=== PATIENT | female | born 1960 | race Caucasian/White ===

== ENCOUNTER 2024-06-24 18:19 | Emergency (ER) | payer MEDICARE ==
[2024-06-24 18:53] LABS: HEMATOCRIT 40.2 % (34.2-48.2); HEMOGLOBIN 13.7 g/dL (11.4-15.5); MEAN CORPUSCULAR HEMOGLOBIN 31.4 pg (23.9-33.9); MEAN CORPUSCULAR VOLUME 92.4 fL (76.7-100.5); MEAN PLATELET VOLUME 7.9 fL (7.1-12.4); PLATELET COUNT,PLT 298 x10(3)uL (151-488); RED BLOOD CELL COUNT 4.35 x10(6)uL (3.60-5.20); WHITE BLOOD CELL COUNT,WBC 9.4 x10-3/uL (3.0-10.3)
[2024-06-24 18:58] LABS: BLOOD UREA NITROGEN,BUN 17 mg/dL (7-18); BUN/CREATININE RATIO 18.9 (9-20); CARBON DIOXIDE,CO2 26 mmol/L (21-32); CHLORIDE,CL 99 mmol/L (100-110); CREATININE 0.9 mg/dL (0.55-1.02); ESTIMATED GFR 72 mL/min (>60); GLUCOSE RANDOM 115 mg/dL (80-116); POTASSIUM,K 4.5 mmol/L (3.5-5.3); SODIUM,NA 132 mmol/L (135-145)
[2024-06-24 19:09] LABS: A/G RATIO 0.9; ALANINE AMINOTRANSFERASE,ALT 19 U/L (12-36); ALBUMIN 3.5 g/dL (3.2-4.6); ALKALINE PHOSPHATASE 85 IU/L (56-112); ASPARTATE AMNIOTRANSFERASE,AST 22 IU/L (5-25); BILIRUBIN TOTAL 0.4 mg/dL (0.1-1.3); PROTEIN TOTAL,TP 7.5 g/dL (6.0-8.0)
[2024-06-24] MEDS: Iopamidol 755 Mg/ML 100 ML Bottle IV SCH (19:31)
[2024-06-24 19:38] LABS: SEG NEUTROPHILS PERCENT MAN 79 % (46-82)
[2024-06-24 19:39] LABS: BAND PERCENT MAN 6 % (0-6); EOSINOPHILS PERCENT MAN 1 % (0-5); LYMPHOCYTES PERCENT MAN 9 % (13-37); MONOCYTES PERCENT MAN 5 % (4-12)
[2024-06-24 19:46] LABS: TROPONIN I 7.5 pg/mL (4.0-60.3)
[2024-06-24 19:50] LABS: C-REACTIVE PROTEIN 2.55 mg/dL (<0.50)
[2024-06-24 20:16] LABS: BILIRUBIN,URINE NEGATIVE (NEGATIVE); GLUCOSE,URINE NORMAL (NORMAL); KETONES,URINE NEGATIVE (NEGATIVE); LEUKOCYTE ESTERASE,URINE NEGATIVE (NEGATIVE); NITRITE,URINE POSITIVE (NEGATIVE); OCCULT BLOOD,URINE NEGATIVE (NEGATIVE); PROTEIN,URINE NEGATIVE (NEGATIVE); UROBILINOGEN,URINE NORMAL (NEGATIVE)
[2024-06-24] MEDS: Sodium Chloride 0.9% 1,000 ML IV ONE (20:17)
[2024-06-24 20:21] LABS: APPEARANCE,URINE SLIGHTLY CLOUDY (CLEAR); BACTERIA,URINE MODERATE (NS); COLOR,URINE YELLOW (YELLOW); RBC,URINE 0-5 (0-5); SQUAMOUS EPITHELIAL CELLS,UR OCCASIONAL (NS,R,O); WBC,URINE 0-5 (0-5)
[2024-06-24] MEDS ORDERED: cefTRIAXone 2 GM Vial IVPUSH ONE (22:07)
[2024-06-24] MEDS: Clopidogrel 75 MG Tab PO ONE (22:24)
[2024-06-24] MEDS: Aspirin 81 MG Tab.Chew PO ONE (22:24)
[2024-06-24] MEDS: cefTRIAXone 1 GM Vial IVPUSH ONE (22:25)
== END 2024-06-24 22:50 | disposition home or self-care (01) ==
LOC: EDBD 18:19 → FB.ED 18:19 → MERGE 18:19 → FB.ED 22:50
DX: R40.4 Transient alteration of awareness (principal)
CPT/HCPCS: 36415; 70496; 70498; 71045; 80053; 81001; 82947; 83605; 84484; 85025; 86140; 87086; 87088; 87186; 93005; 93010; 96374; 99285; A9270; J0696; Q9967

== ENCOUNTER 2024-06-29 19:37 | Emergency (ER) | payer MEDICARE, MEDICAID ==
[2024-06-29] MEDS ORDERED: Sodium Chloride 0.9% 10 ML Syringe FLUSH PRN (19:42)
[2024-06-29] MEDS: Sodium Chloride 0.9% 1,000 ML IV SCH (19:48)
[2024-06-29] MEDS: Ondansetron 4 MG/2 ML SDV IVPUSH ONE (19:48)
[2024-06-29 20:01] LABS: BASOPHILS PERCENT AUTO 0.3 % (0.2-1.5); EOSINOPHILS PERCENT AUTO 0.5 % (0.6-8.1); HEMOGLOBIN 13.7 g/dL (11.4-15.5); LYMPHOCYTES ABSOLUTE AUTO 0.7 x10-3/uL (1.0-4.4); LYMPHOCYTES PERCENT AUTO 15.3 % (18.4-52.1); MEAN CORPUSCULAR HEMOGLOBIN 31.8 pg (23.9-33.9); MEAN CORPUSCULAR HGB CONC 34.3 g/dL (31.9-34.8); MEAN CORPUSCULAR VOLUME 92.8 fL (76.7-100.5); MONOCYTES ABSOLUTE AUTO 0.4 x10-3/uL (0.3-1.0); MONOCYTES PERCENT AUTO 8.6 % (4.4-15.7); NEUTROPHILS ABSOLUTE AUTO 3.6 x10-3/uL (1.5-6.3); NEUTROPHILS PERCENT AUTO 75.3 % (30.8-76.2); PLATELET COUNT,PLT 360 x10(3)uL (151-488); RED BLOOD CELL COUNT 4.31 x10(6)uL (3.60-5.20); RED CELL DISTRIBUTION WIDTH 13.6 % (12.3-16.5); WHITE BLOOD CELL COUNT,WBC 4.8 x10-3/uL (3.0-10.3)
[2024-06-29 20:09] LABS: BLOOD UREA NITROGEN,BUN 15 mg/dL (7-18); BUN/CREATININE RATIO 18.8 (9-20); CALCIUM 9.3 mg/dL (8.6-10.2); CARBON DIOXIDE,CO2 28 mmol/L (21-32); CHLORIDE,CL 97 mmol/L (100-110); CREATININE 0.8 mg/dL (0.55-1.02); EST CRCL DRUG DOSING (CG) 61.35 mL/min; ESTIMATED GFR 82 mL/min (>60); GLUCOSE RANDOM 119 mg/dL (80-116); POTASSIUM,K 4.3 mmol/L (3.5-5.3); SODIUM,NA 134 mmol/L (135-145)
[2024-06-29 20:14] LABS: A/G RATIO 0.8; ALANINE AMINOTRANSFERASE,ALT 92 U/L (12-36); ALBUMIN 3.6 g/dL (3.2-4.6); ALKALINE PHOSPHATASE 76 IU/L (56-112); ASPARTATE AMNIOTRANSFERASE,AST 124 IU/L (5-25); BILIRUBIN TOTAL 0.3 mg/dL (0.1-1.3); PROTEIN TOTAL,TP 8.1 g/dL (6.0-8.0)
== END 2024-06-29 21:55 | disposition home or self-care (01) ==
LOC: FB.ED 19:37
DX: G91.2 (Idiopathic) normal pressure hydrocephalus (principal); Z79.82 Long term (current) use of aspirin; Z79.899 Other long term (current) drug therapy
CPT/HCPCS: 36415; 70450; 71045; 80053; 84484; 85025; 96361; 96374; 99285; J2405; J7030

== ENCOUNTER 2024-11-14 06:17 | Day surgery (SDC) | payer MEDICARE, MEDICAID ==
[~2024-11-14 06:17] MED LIST: Sodium Chloride 0.9% 10 ML Syringe FLUSH PRN
[2024-11-14] MEDS ORDERED: Propofol 200 MG/20 ML SDV IV ONE (06:18)
[2024-11-14] MEDS ORDERED: Lidocaine 2% 100 MG/5 ML Syringe IVPUSH ONE (06:18)
[2024-11-14] MEDS: Lactated Ringers 1,000 ML IV SCH (07:23)
[2024-11-14] MEDS: Simethicone Drops 40 MG/0.6 ML 30 ML Bottle ONE (07:44)
== END 2024-11-14 09:30 | disposition home or self-care (01) ==
LOC: FB.SDS 06:17
PROVIDERS: ATTEND Surgery
DX: Z12.11 Encounter for screening for malignant neoplasm of colon (principal); K63.89 Other specified diseases of intestine; Z79.899 Other long term (current) drug therapy; Z86.0101 Personal history of adenomatous and serrated colon polyps
CPT/HCPCS: A9270; G0105; J2704; J7120; 00811